=== PATIENT | female | born 1940 | race Caucasian/White ===

== ENCOUNTER 2021-04-25 09:54 | Emergency (ER) | payer MEDICARE, OTHER ==
[~2021-04-25] VITALS: Ht 170.2 cm; Wt 68.2 kg
[~2021-04-25 09:54] MED LIST: ALPR-624 PO; LEVO112T5 PO
[2021-04-25] MEDS ORDERED: iohexol 350MG/ML 100ml bottle IV ONE (10:36)
[2021-04-25 11:04] LABS: RED CELL DISTRIBUTION WIDTH 16.4 % (11.5-14.5)
[2021-04-25 11:06] LABS: BASOPHILS # (AUTO) 0.1 X10'3 (0-0.2); BASOPHILS % (AUTO) 0.8 % (0-1); EOSINOPHILS # (AUTO) 0.2 X10'3 (0-0.9); HEMATOCRIT 45.5 % (35.0-45.0); HEMOGLOBIN 15.4 g/dl (12.0-16.0); LYMPHOCYTES # (AUTO) 1.6 X10'3 (1.1-4.8); LYMPHOCYTES % (AUTO) 20.4 % (21-51); MEAN CORPUSCULAR HEMOGLOBIN 30.6 PG (27.0-31.0); MEAN CORPUSCULAR HGB CONC 33.8 g/dL (33.0-36.5); MEAN CORPUSCULAR VOLUME 90.8 FL (78-98); MEAN PLATELET VOLUME 8.2 FL (7.4-10.4); MONOCYTES % (AUTO) 12.1 % (2-12); NEUTROPHILS # (AUTO) 5.1 X10'3 (1.8-7.7); NEUTROPHILS % (AUTO) 64.7 % (42-75); PLATELET COUNT 410 X10'3 (140-440); RED BLOOD COUNT 5.01 X10'6 (4.20-5.60); WHITE BLOOD COUNT 7.9 X10'3 (4.5-11.0)
[2021-04-25 11:23] LABS: ASPARTATE AMINO TRANSFERASE 20 U/L (10-37); BILIRUBIN,TOTAL 0.7 MG/DL (0.1-1.0); BLOOD UREA NITROGEN 8 MG/DL (7-18); BUN/CREATININE RATIO 10.1 (6.6-38.0); CHLORIDE 103 MMOL/L (99-107); CREATININE 0.79 MG/DL (0.40-0.90); GLUCOSE 96 MG/DL (70-104); TOTAL CARBON DIOXIDE 27.7 MMOL/L (24-32); eGFR 70 ML/MIN
[2021-04-25 11:27] LABS: ALANINE AMINOTRANSFERASE 21 U/L (12-78); ALBUMIN 4.2 G/DL (3.4-5.0); ALBUMIN/GLOBULIN RATIO 1.2 (1.1-1.5); ALKALINE PHOSPHATASE 67 IU/L (46-116); ANION GAP 9 (8-16); SODIUM 140 MMOL/L (135-145); TOTAL PROTEIN 7.7 G/DL (6.4-8.2)
[2021-04-25] MEDS ORDERED: LORazepam 2 mg/ml vial IV ONE (16:15)
--- NOTE | 2021-04-25 16:24 | NUR ---
FACESHEET FAXED TO [facility] FOR TRANSFER
[2021-04-25] MEDS ORDERED: prednisoLONE acetate 1% ophth susp 5ml EACHEYE ONE (18:20)
[2021-04-25] MEDS ORDERED: prednisoLONE acetate 1% ophth susp 5ml EACHEYE SCH (18:20)
[2021-04-26 01:34] VITALS: BP 125/69
== END 2021-04-25 19:30 | disposition short-term general hospital (02) ==
LOC: ER 09:54
DX: I71.9 Aortic aneurysm of unspecified site, without rupture (principal); E03.9 Hypothyroidism, unspecified; Z79.899 Other long term (current) drug therapy
CPT/HCPCS: 36415; 71045; 71275; 80053; 84484; 85025; 93005; 96374; 99285; J2060; Q9967